=== PATIENT | female | born 1995 | race African-American/Black ===

== ENCOUNTER 2020-06-14 16:58 | Emergency (ER) | payer SELFPAY ==
[~2020-06-14] VITALS: Ht 160 cm; Wt 133.1 kg
[2020-06-14] MEDS ORDERED: TORSEMIDE20 MG PO (17:27)
[2020-06-14] MEDS ORDERED: MYCOPHENOLATE500 MG (17:27)
[2020-06-14] MEDS ORDERED: ELIQUIS5 MG PO (17:27)
[2020-06-14] MEDS ORDERED: NAPROSYN500 MG PO (19:03)
== END 2020-06-14 19:30 | disposition home or self-care (01) ==
LOC: FSED 17:33
DX: R10.33 Periumbilical pain (principal); I12.9 Hypertensive chronic kidney disease with stage 1 through stage 4 chronic kidney disease, or unspecified chronic kidney disease; N18.9 Chronic kidney disease, unspecified; M32.9 Systemic lupus erythematosus, unspecified
CPT/HCPCS: 74176; 80048; 80076; 81003; 81025; 85025; 99283